=== PATIENT | female | born 1940 | race Caucasian/White ===

== ENCOUNTER 2019-11-26 12:56 | Emergency (ER) | payer MEDICARE, OTHER ==
--- NOTE | 2019-11-26 14:34 | ED Physician Documentation ---
PD HPI Fall - Stated complaint Stated Complaint: FALL DOWN STAIRS - NECK PX - Chief complaint Chief Complaint: Trauma Hd/Nk - History obtained from History obtained from: Patient - History of Present Illness Mechanism of injury: Tripped Fall distance: Standing position Where injury occurred: Home Timing - onset: Today Injury(ies) location: Neck Quality of pain: Pain Associated symptoms: Neck pain. No: LOC, Amnesia, Seizures, Ear drainage, Nasal drainage, Weakness, Paresthesias, Dyspnea, Nausea / vomiting, Hematemesis, Abdominal distension Symptoms improve with: Rest Worsens with: Movement, Palpation Contributing factors: No: Anticoagulated Similar symptoms before: Has not had sx before Recently seen: Not recently seen - Additional information Additional information: Previously well 79-year-old female was walking up her steps she walked up onto the landing she walked up 2 more steps and fell backwards back onto the landing. She has pain in her neck and radiating down to the right shoulder and right arm. She does not have a loss of consciousness she does not have any numbness or tingling she does not have any weakness. She has pain in her neck. She has not been ill recently. Review of Systems Constitutional: denies: Fever Eyes: denies: Decreased vision Ears: denies: Ear pain Nose: denies: Rhinorrhea / runny nose, Congestion Throat: denies: Sore throat Cardiac: denies: Chest pain / pressure Respiratory: denies: Dyspnea, Cough GI: denies: Abdominal Pain, Nausea, Vomiting : denies: Dysuria, Frequency Skin: denies: Rash Musculoskeletal: reports: Neck pain. 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 : None HEENT: None Psych: Depression Musculoskeletal: Osteoarthritis Derm: Psoriasis - Past Surgical History Past Surgical History: Yes General: Cholecystectomy, Appendectomy - Present Medications Home Medications: Ambulatory Orders Medication Instructions Recorded Confirmed Gabapentin [Neurontin] 300 mg PO HS 08/21/14 08/21/14 Levothyroxine [Synthroid] 125 mcg PO QDAC 08/21/14 08/21/14 Naproxen Sodium [Aleve] 220 mg PO DAILY 05/10/15 05/10/15 Trazodone HCl 150 mg PO DAILY 08/21/14 08/21/14 Cyclobenzaprine [Flexeril] 10 mg PO TID PRN #20 tablet 11/26/19 HYDROcod/ACETAM 5/325 [[place] 5/325] 1 - 2 each PO Q6HR PRN #14 tablet 11/26/19 - Allergies Allergies/Adverse Reactions: Allergies Allergy/AdvReac Type Severity Reaction Status Date / Time Penicillins Allergy Hives Verified 11/26/19 13:12 - Social History Does the pt smoke?: No Smoking Status: Never smoker Does the pt drink ETOH?: Yes Does the pt have substance abuse?: No - Immunizations Immunizations are current?: Yes - POLST Patient has POLST: No PD ED PE NORMAL - Vitals Vital signs reviewed: Yes (hypertensive ) - General General: Alert and oriented X 3, No acute distress, Well developed/nourished - HEENT HEENT: Atraumatic, PERRL, EOMI - Neck Neck: Supple, no meningeal sign, Other (There is bony point tenderness to the mid cervical spine and to the paraspinous muscles of the cervical spine more on the right than the leift. ) - Cardiac Cardiac: RRR, No murmur - Respiratory Respiratory: No respiratory distress, Clear bilaterally, Other (No chest wall or upper back tenderness) - Abdomen Abdomen: Normal bowel sounds, Soft, Non tender, Non distended, No organomegaly - Back Back: No CVA TTP, No spinal TTP - Derm Derm: Normal color, Warm and dry, No rash - Extremities Extremities: No deformity, No edema, No calf tenderness / cord - Neuro Neuro: Alert and oriented X 3, fountain server 2-12 intact, No motor deficit, No sensory deficit, Normal speech Eye Opening: Spontaneous Motor: Obeys Commands Verbal: Oriented GCS Score: 15 - Psych Psych: Normal mood, Normal affect Results - Vitals Vitals: Vital Signs - 24 hr 11/26/19 11/26/19 11/26/19 13:08 15:00 16:54 Temperature 36.4 C L Heart Rate 58 L 65 60 Respiratory 17 16 16 Rate Blood Pressure 161/61 H 146/85 H 155/89 H O2 Saturation 98 99 98 11/26/19 17:06 Temperature 36.7 C Heart Rate 62 Respiratory 16 Rate Blood Pressure 150/85 H O2 Saturation 98 Oxygen O2 Source Room air - Rads (name of study) CT cervical spine w/o Radiology: Prelim report reviewed (Impression: No fractures are seen. Relatively prominent lower cervical spine degenerative changes are seen.), EMP read indepedently, See rad report PD MEDICAL DECISION MAKING - ED course Complexity details: reviewed old records, reviewed results, re-evaluated patient, considered differential, d/w patient ED course: 79-year-old female with a fall onto a stair landing has injured her neck without evidence of fracture. This occurred 3 days ago and there is pain radiating down the right arm. She is administered decadron and placed into a soft collar for comfort which helps. Departure - Departure Disposition: Home, Self Care Clinical Impression: Cervical strain, acute Qualifiers: Encounter type: initial encounter Qualified Code(s): S16.1XXA - Strain of muscle, fascia and tendon at neck level, initial encounter Condition: Stable Instructions: ED Sprain Strain Neck Follow-Up: Your, doctor [Other] Prescriptions: HYDROcod/ACETAM 5/325 [[place] 5/325] 1 - 2 each PO Q6HR PRN #14 tablet PRN Reason: neck pain Cyclobenzaprine [Flexeril] 10 mg PO TID PRN #20 tablet PRN Reason: Spasms Discharge Date/Time: 11/26/19 17:08
--- NOTE | 2019-11-26 16:18 | CT Report ---
PROCEDURE: CERVICAL SPINE WO INDICATIONS: polytrauma, spine injury suspected TECHNIQUE: Noncontrast 3 mm thick sections acquired from the skull base to the T4 level. Sagittal and coronal r eformats were then constructed. For radiation dose reduction, the following was used: automated exp osure control, adjustment of mA and/or kV according to patient size. COMPARISON: None available at the time of this dictation FINDINGS: Image quality: Excellent. Bones: No fractures or dislocations. Visualized superior ribs are intact. Cervical spine degenerative changes are seen, with moderate disc space narrowing at C5-C6 and moderat e to severe disc space narrowing at C6-C7. Endplate irregularity and sclerosis are seen at these leve ls, with posterior directed endplate osteophytes at these levels. There is mild to moderate disc spac e narrowing seen at C4-C5. Mild grade 1 anterolisthesis is seen at C4-C5. Focal degenerative change i s seen involving the C1-C2 interface anteriorly. There is fusion of the right C4-C5 facet joint, as o n series 7 image 55. Soft tissues: Prevertebral soft tissues are normal in thickness. No paravertebral hematomas. No ap ical pneumothoraces. Presumed age-appropriate scarring is seen at the lung apices, right worse than left. IMPRESSION: No acute fractures are seen. Relatively prominent lower cervical spine degenerative changes are seen. Reviewed by: Israel Edwards MD on 11/26/2019 3:17 PM JUAN DANIEL Approved by: sIrael Edwards MD on 11/26/2019 3:17 PM JUAN DANIEL Station ID: [id number]
[2019-11-26 17:08] VITALS: BP 150/85
== END 2019-11-26 17:08 | disposition home or self-care (01) ==
LOC: ED 12:56
DX: S16.1XXA Strain of muscle, fascia and tendon at neck level, initial encounter (principal); M25.511 Pain in right shoulder; W10.8XXA Fall (on) (from) other stairs and steps, initial encounter; Y93.01 Activity, walking, marching and hiking; Y92.008 Other place in unspecified non-institutional (private) residence as the place of occurrence of the external cause; M50.321 Other cervical disc degeneration at C4-C5 level
CPT/HCPCS: 72125; 99284

== ENCOUNTER 2020-06-21 14:13 | Observation (INO) | payer MEDICARE, OTHER ==
[2020-06-21 15:00] LABS: BASOPHILS % (AUTO) 0.5 %; EOSINOPHILS # (AUTO) 0.1 10^3/uL (0.0-0.7); EOSINOPHILS % (AUTO) 1.8 %; HCT - HEMATOCRIT 41.6 % (37.0-47.0); HGB - HEMOGLOBIN 13.9 g/dL (12.0-16.0); LYMPHOCYTES # (AUTO) 1.3 10^3/uL (1.5-3.5); LYMPHOCYTES % (AUTO) 22.6 %; MEAN CORPUSCULAR HEMOGLOBIN 30.5 pg (27.0-31.0); MEAN CORPUSCULAR HGB CONC 33.4 g/dL (32.0-36.0); MEAN CORPUSCULAR VOLUME 91.2 fL (81.0-99.0); MEAN PLATELET VOLUME 10.7 fL (7.9-10.8); MONOCYTES # (AUTO) 0.7 10^3/uL (0.0-1.0); NEUTROPHILS # (AUTO) 3.4 10^3/uL (1.5-6.6); NEUTROPHILS % (AUTO) 61.9 %; PLT - PLATELET COUNT 201 10^3/uL (130-450); RED BLOOD COUNT 4.56 10^6/uL (4.20-5.40); RED CELL DISTRIBUTION WIDTH 13.5 % (12.0-15.0); WHITE BLOOD COUNT 5.5 x10^3/uL (4.8-10.8)
--- NOTE | 2020-06-21 15:07 | ED Physician Documentation ---
History of Present Illness - Stated complaint Stated Complaint: SENT BY CLINIC - Chief complaint Chief Complaint: Neuro - Additonal information Additional information: 80-year-old female comes to the emergency department for evaluation of str okelike symptoms. At approximately 10 AM this morning she was sitting in a chair and began to fall to the left side. She reports that she was unable to walk. She called her granddaughters for help and they assisted her to a couch. She was able to speak fully without slurred speech. The granddaughter reports that when she asked her grandmother to look at her her eyes looked in the wrong direction. Patient denies any vision changes. No sudden headache. The symptoms lasted about 10 minutes before fully resolving. She called her primary care doctor who advised she come to the ER. Patient then went to an urgent care who again advised she come to the ER. Patient arrives to the emergency department now. No history of atrial fib or hypertension. She is not anticoagulated. no tobacco use She does have a history of a stroke when she was 38 years of age. The etiology of that stroke is not clear. 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 - Past Surgical History Past Surgical History: Yes General: Cholecystectomy, Appendectomy - Present Medications Home Medications: Ambulatory Orders Medication Instructions Recorded Confirmed Gabapentin [Neurontin] 300 mg PO HS 08/21/14 08/21/14 Levothyroxine [Synthroid] 125 mcg PO QDAC 08/21/14 08/21/14 Trazodone HCl 150 mg PO DAILY 08/21/14 08/21/14 Cholesterol Medicine 0 mg 06/21/20 - Allergies Allergies/Adverse Reactions: Allergies Allergy/AdvReac Type Severity Reaction Status Date / Time Penicillins Allergy Hives Verified 06/21/20 15:54 - Social History Does the pt smoke?: No Smoking Status: Never smoker Does the pt drink ETOH?: Yes Does the pt have substance abuse?: No - Immunizations Immunizations are current?: Yes - POLST Patient has POLST: No PD ED PE EXPANDED - General General: Alert, No acute distress, Well developed/nourished - Neck Neck: Supple w/out meningeal sx. No: Adenopathy - Cardiac Cardiac: Regular Rate, Regular Rhythm, Radial strong equal, Pedal strong equal, Cap refill < 2 sec - Respiratory Respiratory: Clear to ausultation [place]. No: Distress, Labored - Abdomen Abdomen: Normal Bowel sounds. No: Tender to palpation - Neuro Neuro: Alert and Oriented X 3, CNII-XII intact, PERRL, Cerebellar nl, Normal finger nose, Normal speech. No: Nystagmus - GCS Eye Opening: Spontaneous Motor: Obeys Commands Verbal: Oriented Total: 15 Results - Vitals Vitals: Vital Signs - 24 hr 06/21/20 14:40 Temperature 36.7 C Heart Rate 58 L Respiratory 14 Rate Blood Pressure 147/81 H O2 Saturation 98 Oxygen O2 Source Room air - EKG (time done) 1443 Rate: Rate (enter#) (58) Rhythm: NSR [place]: Normal Intervals: Normal MD, Prolonged QT (450) Ischemia: Non specific changes (t wave flattening inferior) Compare to prior EKG: Old EKG unavailable Computer interpretation: Agree with computer - Labs Labs: Laboratory Tests 06/21/20 06/21/20 06/21/20 14:48 14:48 14:48 WBC 5.5 RBC 4.56 Hgb 13.9 Hct 41.6 MCV 91.2 MCH 30.5 MCHC 33.4 RDW 13.5 Plt Count 201 MPV 10.7 Neut # (Auto) 3.4 Lymph # (Auto) 1.3 L [place] # (Auto) 0.7 Eos # (Auto) 0.1 Baso # (Auto) 0.0 Absolute Nucleated RBC 0.00 Nucleated RBC % 0.0 Whole Blood INR 1.1 Sodium 135 Potassium 4.0 Chloride 101 Carbon Dioxide 23 Anion Gap 11.0 BUN 16 Creatinine 0.8 Estimated GFR (MDRD) 69 L Glucose 97 Calcium 8.8 Total Bilirubin 0.5 AST 21 ALT 13 Alkaline Phosphatase 70 Total Protein 7.6 Albumin 4.1 Globulin 3.5 Albumin/Globulin Ratio 1.2 Lipase 27 TSH 06/21/20 14:48 WBC RBC Hgb Hct MCV MCH MCHC RDW Plt Count MPV Neut # (Auto) Lymph # (Auto) Garden # (Auto) Eos # (Auto) Baso # (Auto) Absolute Nucleated RBC Nucleated RBC % Whole Blood INR Sodium Potassium Chloride Carbon Dioxide Anion Gap BUN Creatinine Estimated GFR (MDRD) Glucose Calcium Total Bilirubin AST ALT Alkaline Phosphatase Total Protein Albumin Globulin Albumin/Globulin Ratio Lipase TSH 1.10 - Rads (name of study) angio neck Radiology: Final report received (No areas of hemodynamically significant stenosis, vascular occlusion or aneurysmal dilation within the neck vasculature), Discussed with rads angio head CT Radiology: Final report received cxr Radiology: Final report received (Mild coarsened bibasilar opacities which could represent dependent edema versus developing airspace disease such as pneumonia.) PD MEDICAL DECISION MAKING - ED course Complexity details: reviewed results, re-evaluated patient, considered differential, d/w patient ED course: 80-year-old female presents to the emergency department for strokelike symptoms. At approximately 10 this a.m. she developed sudden weakness on the left side of her body and could not control it. Her granddaughters got her up and walked her to a couch. The weakness on the left side lasted about 10 minutes. The patient does have a history of previous CVA when she was 38 years of age. No history of hypertension non-smoker. No history of atrial fibrillation. EKG here is sinus rhythm. Screening labs show no acute abnormalities. CT angio of the head and neck showed no significant stenosis aneurysms or lesions. However given the history of previous stroke and short duration strokelike symptoms this a.m. patient will be brought into the hospital on observation status for further evaluation and work-up. I have spoken with Dr. Aguilar who agrees to bring the patient in for further treatment Departure - Departure Disposition: ED Place in Observation Clinical Impression: Stroke-like symptoms
[2020-06-21 15:19] LABS: ALBUMIN 4.1 g/dL (3.2-5.5); ALBUMIN/GLOBULIN RATIO 1.2 (1.0-2.2); BILIRUBIN,TOTAL 0.5 mg/dL (0.2-1.0); CALCIUM 8.8 mg/dL (8.5-10.3); CREATININE 0.8 mg/dL (0.4-1.0); TOTAL PROTEIN 7.6 g/dL (6.7-8.2)
--- NOTE | 2020-06-21 15:29 | XRAY Report ---
PROCEDURE: Chest 1 View X-Ray INDICATIONS: Chest Pain TECHNIQUE: One view of the chest was acquired. COMPARISON: Chest x-ray 08/21/2014 FINDINGS: Surgical changes and devices: None. Lungs and pleura: No pleural effusions or pneumothorax. Mild appearance of coarsened bibasilar opaci ties. Mediastinum: Mediastinal contours appear normal. Heart size is enlarged. Bones and chest wall: No suspicious bony lesions. Overlying soft tissues appear unremarkable. IMPRESSION: Mild coarsened bibasilar opacities which could represent dependent edema versus developing airspace d isease such as pneumonia. Reviewed by: Oksana Maguire MD on 06/21/2020 3:27 PM PST Approved by: Oksana Maguire MD on 06/21/2020 3:27 PM PST Station ID: [id number]
[2020-06-21] MEDS ORDERED: IOVERSOL 320 100 ML VIAL IVP ONE ×2 (15:51→16:02)
--- NOTE | 2020-06-21 15:52 | CT Report ---
PROCEDURE: ANGIO HEAD W/WO INDICATIONS: L sided facial droop CONTRAST: IV CONTRAST: Optiray 320 ml: 80 PO CONTRAST: *NO PO CONTRAST TECHNIQUE: Precontrast 4.5 mm thick angled axial sections acquired from the foramen magnum to the vertex. Afte r the administration of intravenous contrast, 1 mm thick sections acquired through the [place] of [place] is. Postcontrast 4.5 mm thick sections then re-acquired from the foramen magnum to the vertex. 3-di mensional evgsvry-hfgdwkrur-nsrprrazsx (MIP) and/or volume rendering reformats were acquired of the c entral intracranial vasculature. For radiation dose reduction, the following was used: automated ex posure control, adjustment of mA and/or kV according to patient size. COMPARISON: CT head 08/21/2014, CTA neck 06/21/2020 FINDINGS: Image quality: Excellent. Anterior circulation: Intracranial internal carotid arteries are normal in size and flow. The flow within the paired anterior cerebral arteries is normal and symmetric. The flow within the middle cer ebral arteries is normal and symmetric. The anterior communicating artery is seen. No aneurysms are seen. Posterior circulation: Visualized portions of the vertebral arteries demonstrate normal caliber, and join to form a normal appearing basilar artery. Flow within the posterior cerebral arteries is norm al and symmetric. No aneurysms are seen. There is a left vertebral artery dominance with the right vertebral artery ending in height. There is persistence of a right-sided circulation, consisten t with congenital variation. The ventricular system and cortical sulci demonstrate atrophy, consistent for patient's stated age. There are areas of hypodensity in the periventricular and subcortical white matter. There is no acut e intra or extra-axial fluid collection. No acute hemorrhage, mass lesion or midline shift. Old left basal ganglia infarction. Brainstem is unremarkable. Globes are symmetrical. Sinuses are aerated. O sseous structures are intact. IMPRESSION: 1. No acute intracranial process. 2. Moderate atrophy and chronic microvascular ischemic changes. 3. No areas of hemodynamically significant stenosis, vascular occlusion or aneurysmal dilation within the anterior or posterior circulation. Reviewed by: Oksana Maguire MD on 06/21/2020 3:50 PM PST Approved by: Oksana Maguire MD on 06/21/2020 3:50 PM PST Station ID: [id number]
--- NOTE | 2020-06-21 15:54 | CT Report ---
PROCEDURE: ANGIO NECK W INDICATIONS: L sided facial droop, L neck pain CONTRAST: IV CONTRAST: Optiray 320 ml: 80 PO CONTRAST: *NO PO CONTRAST TECHNIQUE: After the administration of intravenous contrast, 1.5 mm axial sections acquired from the aortic arch to the [place] of [place]. Coronal 3-D maximum intensity projection (MIP) and/or volume rendering ref ormats were then performed. For radiation dose reduction, the following was used: automated exposur e control, adjustment of mA and/or kV according to patient size. COMPARISON: CTA head 06/21/2020, CT brain 08/21/2014 FINDINGS: Image quality: Excellent. The origins of the left and right common, internal and external carotid arteries demonstrate no areas of hemodynamically significant stenosis, vascular occlusion or aneurysmal dilation. Origin of the le ft vertebral artery and right vertebral artery demonstrate no areas of hemodynamically significant st enosis, vascular occlusion or aneurysmal dilation. 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 In addition, the origin of the left vertebral artery is the aortic arch, also consistent w ith congenital variation. Limited, visualized portions of the subclavian vasculature are unremarkable . IMPRESSION: 1. There are no areas of hemodynamically significant stenosis, vascular occlusion or aneurysmal dilat ion within the neck vasculature. The estimate of stenosis included in the report of the imaging study was calculated using the NASCET method Reviewed by: Oksana Maguire MD on 06/21/2020 3:53 PM PST Approved by: Oksana Maguire MD on 06/21/2020 3:53 PM PST Station ID: [id number]
[2020-06-21] MEDS ORDERED: ACETAMINOPHEN 325 MG TABLET PO PRN (16:15)
[2020-06-21] MEDS ORDERED: SODIUM CHLORIDE FLUSH 0.9% 10 ML SYRINGE IVP PRN (16:15)
[2020-06-21] MEDS ORDERED: ASPIRIN 325 MG TABLET PO STA (16:20)
--- NOTE | 2020-06-21 16:25 | HISTORY & PHYSICAL EXAMINATION ---
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 This happened around 10 AM while she was drinking coffee. She suddenly felt like her left side was weak and she was falling to the left side. She called to her granddaughters who physically supported her and helped her walk to the couch. The whole episode lasted about 10 minutes. She called her primary care physician and was advised to go to the ED however she initially presented to urgent care from where she was directed to the ED. Work-up in the ED so far has included a CT scan of the brain without contrast which was negative. She currently has no neurologic deficits. She denied slurred speech or headaches. She reported changes in her vision at the time of the episode. She had difficulty focusing. Currently she denies any problems with her vision. She denied chest pain, dyspnea, abdominal pain, fever or chills. She was nauseous but did not vomit. As a result of her presentation she is being admitted for TIA versus CVA rule out. History - Past Medical History Cardiovascular: reports: None, High cholesterol Neuro: reports: CVA Endocrine/Autoimmune: reports: HyPOthyroidism GI: reports: None OPTOMETRY DOCTOR: reports: None : reports: None HEENT: reports: None Psych: reports: Depression Musculoskeletal: reports: Osteoarthritis Derm: reports: Psoriasis Other Past Medical History: Pt states had a CVA at age 35. - Past Surgical History General: reports: Cholecystectomy, Appendectomy - Family & Social History Family History Comment/Other: Her son has diabetes mellitus and CHF. Social History Notes: She smoked about 1 pack/day for 35 years but quit smoking 29 years ago. She drinks a couple of glasses of wine every night. She denies any recreational substance use. - POLST Patient has POLST: No POLST Status: Full Code Meds/Allgy - Home Medications Home Medications: Ambulatory Orders Medication Instructions Recorded Confirmed Gabapentin [Neurontin] 300 mg PO HS 08/21/14 08/21/14 Levothyroxine [Synthroid] 125 mcg PO QDAC 08/21/14 08/21/14 Trazodone HCl 150 mg PO DAILY 08/21/14 08/21/14 Cholesterol Medicine 0 mg 06/21/20 - Allergies Allergies/Adverse Reactions: Allergies Allergy/AdvReac Type Severity Reaction Status Date / Time Penicillins Allergy Hives Verified 06/21/20 15:54 Review of Systems - Constitutional Constitutional: denies: Fatigue, Fever, Chills - Eyes Eyes: denies: Pain, Vision loss, Dipolpia - Ears, Nose & Throat Ears, Nose & Throat: denies: Ear pain, Sore throat, Hoarseness - Cardiovascular Cariovascular: denies: Irregular heart rate, Edema, Lightheadedness, Syncope - Respiratory Respiratory: denies: Cough, Sputum production, Wheezing, SOB at rest, SOB with exertion - Gastrointestinal Gastrointestinal: denies: Abdominal pain, Abdominal distention, Constipation, Diarrhea, Change in bowel habits, Nausea, Vomiting - Genitourinary Genitourinary: denies: Dysuria, Frequency, Urgency, Hematuria, Incontinence, Flank pain - Musculoskeletal Musculoskeletal: denies: Muscle pain, Back pain, Muscle aches, Stiffness - Integumentary Integumentary: denies: Rash, Pruritis, Lesions - Neurological Neurological: reports: Focal weakness (left sided). denies: Headache, Dizziness, Numbness - Psychiatric Psychiatric: denies: Depression, Anxiety, Suicidal - Endocrine Endocrine: denies: Polyuria, Polydypsia - Hematologic/Lymphatic Hematologic/Lymphatic: denies: Anemia, Bruising, Petechiae Prior Level of Functionality: Patient is independent of activities of daily living. She walks without any walking aid. The granddaughter lives with her. Exam - Vital Signs Vital Signs: Vital Signs x48h Temp Pulse Resp BP Pulse Ox 06/21/20 14:40 36.7 C 58 L 14 147/81 H 98 - Physical Exam General Appearance: positive: No acute distress, Alert Eyes Bilateral: positive: PERRL, EOMI ENT: positive: No signs of dehydration Neck: positive: No JVD, Trachea midline Respiratory: positive: Chest non-tender, No respiratory distress, Breath sounds nml. negative: Wheezes, Rales, Rhonchi Cardiovascular: positive: Regular rate & rhythm, No murmur Abdomen: positive: Non-tender, No organomegaly, Nml bowel sounds, No distention. negative: Guarding, Rebound Rectal: positive: Non-tender Back: positive: Nml inspection Skin: positive: Color nml, No rash, Warm, Dry Extremities: positive: Non-tender, Full ROM, Nml appearance, No pedal edema Neurologic/Psychiatric: positive: Oriented x3, CN's nml (2-12), Motor nml, Mood/affect nml. negative: Weakness, Facial droop, Slurred/abnml speech Conclusion/Plan - Problem List (1) TIA (transient ischemic attack) Conclusion/Plan: CT head, CT angio head and neck were negative for any acute intracranial process. MRI of the brain ordered for the morning. 2D echocardiogram ordered. We will check lipid panel, hemoglobin A1c. Patient given a full dose of aspirin. Atorvastatin 40 mg nightly ordered. Neurochecks every shift. (2) Hyperlipidemia Conclusion/Plan: Lipid panel pending. Atorvastatin 40 mg every afternoon ordered (3) Hypothyroidism Conclusion/Plan: Resume Synthroid 125 mcg p.o. q.dAC - Lab Results Fish Bones: 06/21/20 14:48 06/21/20 14:48 Core Measures - Anticipated LOS I expect patient to be DC'd or transferred within 96 hours.: Yes - DVT/VTE - Prophylaxis VTE/DVT Device ordered at admit?: Yes VTE/DVT Prophylaxis med ordered at admit?: No
[2020-06-21] MEDS: SODIUM CHLORIDE FLUSH 0.9% 10 ML SYRINGE IVP SCH ×2 (18:48→23:35)
[2020-06-21] MEDS ORDERED: GABAPENTIN 300 MG CAPSULE PO SCH (21:00)
[2020-06-21] MEDS ORDERED: ATORVASTATIN 40 MG TABLET PO SCH (21:00)
[2020-06-21] MEDS ORDERED: traZODone 50 MG TABLET PO SCH (21:00)
[2020-06-21] MEDS: SODIUM CHLORIDE 0.9% 1,000 ML IV SCH (23:12)
[2020-06-22 05:04] LABS: BASOPHILS # (AUTO) 0.1 10^3/uL (0.0-0.1); BASOPHILS % (AUTO) 1.2 %; EOSINOPHILS # (AUTO) 0.3 10^3/uL (0.0-0.7); EOSINOPHILS % (AUTO) 7.2 %; HCT - HEMATOCRIT 40.1 % (37.0-47.0); HGB - HEMOGLOBIN 12.9 g/dL (12.0-16.0); LYMPHOCYTES # (AUTO) 1.5 10^3/uL (1.5-3.5); LYMPHOCYTES % (AUTO) 35.2 %; MEAN CORPUSCULAR HEMOGLOBIN 29.6 pg (27.0-31.0); MEAN CORPUSCULAR HGB CONC 32.2 g/dL (32.0-36.0); MEAN PLATELET VOLUME 10.7 fL (7.9-10.8); MONOCYTES # (AUTO) 0.7 10^3/uL (0.0-1.0); MONOCYTES % (AUTO) 15.6 %; NEUTROPHILS # (AUTO) 1.7 10^3/uL (1.5-6.6); NEUTROPHILS % (AUTO) 40.6 %; PLT - PLATELET COUNT 188 10^3/uL (130-450); RED BLOOD COUNT 4.36 10^6/uL (4.20-5.40); RED CELL DISTRIBUTION WIDTH 13.5 % (12.0-15.0); WHITE BLOOD COUNT 4.3 x10^3/uL (4.8-10.8)
[2020-06-22 05:26] LABS: BUN - BLOOD UREA NITROGEN 15 mg/dL (6-20); CALCIUM 8.5 mg/dL (8.5-10.3); CARBON DIOXIDE - CO2 23 mmol/L (21-32); CHLORIDE 106 mmol/L (101-111); CHOL/HDL RATIO 2.7 (<4.4); CHOLESTEROL 148 mg/dL; CREATININE 0.7 mg/dL (0.4-1.0); GFR - MDRD 81 (>89); GLUCOSE 90 mg/dL (70-100); HDL CHOLESTEROL 54 mg/dL; LDL CHOLESTEROL,CALCULATED 81 mg/dL; LDL/HDL RATIO 1.5 (<4.4); POTASSIUM 3.7 mmol/L (3.5-5.0); SODIUM 138 mmol/L (135-145); TRIGLYCERIDES 63 mg/dL; VLDL CHOLESTEROL 13 mg/dL
[2020-06-22] MEDS: SODIUM CHLORIDE 0.9% 1,000 ML IV SCH ×2 (05:36→13:33)
[2020-06-22] MEDS ORDERED: PANTOPRAZOLE 40 MG TABLET PO SCH (07:00)
[2020-06-22] MEDS ORDERED: LEVOTHYROXINE 125 MCG TABLET PO SCH (07:00)
[2020-06-22] MEDS: SODIUM CHLORIDE FLUSH 0.9% 10 ML SYRINGE IVP SCH (08:30)
[2020-06-22] MEDS ORDERED: ASPIRIN EC 81 MG TABLET PO SCH (09:00)
--- NOTE | 2020-06-22 11:05 | PHARMACY PROGRESS NOTE ---
- Best Possible Medication History Admit Date and Time: 06/21/20 1615 Processed by: Pharmacy Medication History completed: Yes Patient Interview: Completed Secondary Source(s): Physician records, Pharmacy records, Insurance records (PATIENT INTERVIEWED BY DESIGN SALES CONSULTANT. PATIENT ABLE TO CONFIRM HOME MEDICATIONS ) As the person ultimately responsible for medication therapy, providers are able to order a medication from an existing home medication list in [facility] via the "Reconcile Routine" prior to Confirmation of that medication by sales support engineer. Such practice is discouraged except when the physician, in their clinical judgment, deems that a medical need exists for a medication without regard to previous use.
--- NOTE | 2020-06-22 11:35 | MRI Report ---
PROCEDURE: Brain W/O INDICATIONS: TIA TECHNIQUE: Noncontrast axial T1 spin echo, axial T2 fast spin echo, sagittal and axial FLAIR, coronal T2 fast sp in echo, axial gradient echo, axial diffusion and ADC through the brain. COMPARISON: CT head, CTA head and neck 06/21/2020, CT head 08/21/2014 bulge infarction within the left basal ganglia extending into the subinsular region. FINDINGS: Image quality: Excellent. The ventricular system and cortical sulci demonstrate atrophy, consistent for patient's stated age. There are areas of hyperintense T2/FLAIR signal in the periventricular and subcortical white matter. There is no acute intra or extra-axial fluid collection. No acute hemorrhage, mass lesion or midlin e shift. Brainstem is unremarkable. There are no areas of restricted diffusion. Globes are symmetr ical. Sinuses are aerated. Osseous structures are intact. IMPRESSION: 1. No acute intracranial process. No acute ischemia. 2. Moderate atrophy and chronic microvascular ischemic changes. Reviewed by: Oksana Maguire MD on 06/22/2020 11:34 AM PST Approved by: Oksana Maguire MD on 06/22/2020 11:34 AM PST Station ID: [id number]
[2020-06-22 12:39] LABS: ESTIMATED AVERAGE GLUCOSE 105 mg/dL (70-100); HEMOGLOBIN A1c% 5.3 % (4.27-6.07)
--- NOTE | 2020-06-22 13:54 | DISCHARGE SUMMARY ---
Discharge Summary Admit Date: 06/21/20 Discharge Date: 06/22/20 Discharging Provider: Stefani Aguilar Condition at Discharge: Stable Discharge Disposition: 01 Home, Self Care - DIAGNOSES Admission Diagnoses: TIA Hyperlipidemia Hypothyroidism Discharge Diagnoses with Status of Each Condition: TIA: Acute. Resolved Hyperlipidemia: Chronic. 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 This happened around 10 AM while she was drinking coffee. She suddenly felt like her left side was weak and she was falling to the left side. She called to her granddaughters who physically supported her and helped her walk to the couch. The whole episode lasted about 10 minutes. She called her primary care physician and was advised to go to the ED however she initially presented to urgent care from where she was directed to the ED. Work-up in the ED so far has included a CT scan of the brain without contrast which was negative. She currently has no neurologic deficits. She denied slurred speech or headaches. She reported changes in her vision at the time of the episode. She had difficulty focusing. Currently she denies any problems with her vision. She denied chest pain, dyspnea, abdominal pain, fever or chills. She was nauseous but did not vomit. As a result of her presentation she is being admitted for TIA versus CVA rule out. The patient's hospital stay was unremarkable. There were no new events throughout her stay. Patient was placed on the baby aspirin daily. Her atorvastatin was increased from 10 to 40 mg nightly. She is to follow-up with her primary care physician as needed. CT angio of the head and neck was negative for any acute intracranial process. There was moderate atrophy and chronic microvascular ischemic changes noted. No areas of hemodynamically significant stenosis, vascular occlusion or aneurysmal dilatation within the anterior or posterior circulation. MRI of brain without contrast showed no acute intracranial process. No acute ischemia. Moderate atrophy and chronic microvascular ischemic changes. 2D echocardiogram showed left ventricular size is normal. Left ventricle wall thickness is towards the upper limit of normal to mildly increased. Overall left ventricular systolic function is normal with an ejection fraction of 60 to 65%. Diastolic function is indeterminate. No regional wall motion abnormalities is seen. Right ventricle size was normal. Function was also normal. There is no evidence of aortic stenosis. There is no evidence of aortic regurgitation. RVSP is 20. There is no pericardial effusion. There is no mass or thrombus identified. There is no pleural effusion. - ALLERGIES Allergies/Adverse Reactions: Allergies Allergy/AdvReac Type Severity Reaction Status Date / Time Penicillins Allergy Hives Verified 06/21/20 15:54 - MEDICATIONS Home Medications: Ambulatory Orders Medication Instructions Recorded Confirmed Gabapentin [Neurontin] 300 mg PO HS 08/21/14 06/22/20 Atorvastatin [Lipitor] 10 mg PO DAILY 06/21/20 06/22/20 Escitalopram [Lexapro] 10 mg PO DAILY 06/21/20 06/22/20 Levothyroxine [Synthroid] 112 mcg PO DAILY 06/21/20 06/22/20 Aspirin EC [Ecotrin] 81 mg PO DAILY 30 Days #30 tablet 06/22/20 Atorvastatin [Lipitor] 40 mg PO QPM 30 Days #30 tablet 06/22/20 - PHYSICAL EXAM AT DISCHARGE General Appearance: positive: No acute distress, Alert Eyes Bilateral: positive: PERRL, EOMI ENT: positive: No signs of dehydration Neck: positive: No JVD, Trachea midline Respiratory: positive: Chest non-tender, No respiratory distress, Breath sounds nml. negative: Wheezes, Rales, Rhonchi Cardiovascular: positive: Regular rate & rhythm, No murmur Abdomen: positive: Non-tender, No organomegaly, Nml bowel sounds, No distention. negative: Guarding, Rebound Back: positive: Nml inspection Skin: positive: Color nml, No rash, Warm, Dry Extremities: positive: Non-tender, Full ROM, Nml appearance, No pedal edema Neurologic/Psychiatric: positive: Oriented x3, CN's nml (2-12), Motor nml, Sens ation nml, Mood/affect nml - LABS Result Diagrams: 06/22/20 04:25 06/22/20 04:25 - TIME SPENT Time Spent in Discharge (Minutes): 25
--- NOTE | 2020-06-22 13:57 | Discharge Plan ---
Discharge Plan Problem Reviewed?: Yes Disposition: 01 Home, Self Care Condition: Stable Prescriptions: Aspirin EC [Ecotrin] 81 mg PO DAILY 30 Days #30 tablet Atorvastatin [Lipitor] 40 mg PO QPM 30 Days #30 tablet Diet: Cardiac Activity Restrictions: Activity as Tolerated Shower Restrictions: No Driving Restrictions: No Health Concerns: Admitted for left-sided weakness which Lasted around 10 minutes while you were at home. The symptoms had resolved by the time he came to the hospital. Consequently you underwent TIA versus CVA work-up. You had an MRI of the brain, 2D echocardiogram, lipid panel and glucose levels checked. The imagings that were done were negative for any new stroke. Your symptoms have not recurred throughout the time you have been monitored in the hospital. Consequently you are being discharged home. We will advised you to take a baby aspirin daily. Continue taking your atorvastatin at 40mg qhs. Follow-up with your primary care physician as needed. The above was explained to you and you are in agreement. Plan of Treatment: Admitted for left-sided weakness which Lasted around 10 minutes while you were at home. The symptoms had resolved by the time he came to the hospital. Consequently you underwent TIA versus CVA work-up. You had an MRI of the brain, 2D echocardiogram, lipid panel and glucose levels checked. The imagings that were done were negative for any new stroke. Your symptoms have not recurred throughout the time you have been monitored in the hospital. Consequently you are being discharged home. We will advised you to take a baby aspirin daily. Continue taking your atorvastatin 40mg qhs. Follow-up with your primary care physician as needed. The above was explained to you and you are in agreement. Care Goals: Admitted for left-sided weakness which Lasted around 10 minutes while you were at home. The symptoms had resolved by the time he came to the hospital. Consequently you underwent TIA versus CVA work-up. You had an MRI of the brain, 2D echocardiogram, lipid panel and glucose levels checked. The imagings that were done were negative for any new stroke. Your symptoms have not recurred throughout the time you have been monitored in the hospital. Consequently you are being discharged home. We will advised you to take a baby aspirin daily. Continue taking your atorvastatin 40mg qhs. Follow-up with your primary care physician as needed. The above was explained to you and you are in agreement. Assessment: Admitted for left-sided weakness which Lasted around 10 minutes while you were at home. The symptoms had resolved by the time he came to the hospital. Consequently you underwent TIA versus CVA work-up. You had an MRI of the brain, 2D echocardiogram, lipid panel and glucose levels checked. The imagings that were done were negative for any new stroke. Your symptoms have not recurred throughout the time you have been monitored in the hospital. Consequently you are being discharged home. We will advised you to take a baby aspirin daily. Continue taking your atorvastatin 40mg qhs. Follow-up with your primary care physician as needed. The above was explained to you and you are in agreement. No Smoking: If you smoke, Please STOP! Call for help.
[2020-06-22 15:43] VITALS: BP 123/67
== END 2020-06-22 15:50 | disposition home or self-care (01) ==
LOC: ED 14:13 → MS2 16:15
PROVIDERS: ADMIT Internal Medicine; ATTEND Internal Medicine
DX: G45.9 Transient cerebral ischemic attack, unspecified (principal); E78.5 Hyperlipidemia, unspecified; E03.9 Hypothyroidism, unspecified; I69.941 Monoplegia of lower limb following unspecified cerebrovascular disease affecting right dominant side; F32.9 Major depressive disorder, single episode, unspecified; M19.90 Unspecified osteoarthritis, unspecified site; Z79.899 Other long term (current) drug therapy; Z87.891 Personal history of nicotine dependence
CPT/HCPCS: 36415; 70496; 70498; 70551; 71045; 80048; 80053; 80061; 83036; 83690; 84443; 85025; 85610; 93005; 93306; 99284; 99285; A9270; G0378; Q9967; 83721

== ENCOUNTER 2020-11-16 15:49 | Outpatient (CLI) | payer MEDICARE, OTHER | END 2020-11-16 15:50 | disposition home or self-care (01) | LOC: COV 15:49 | PROVIDERS: ATTEND Family Medicine | DX: R05 Cough (principal); R07.0 Pain in throat; Z20.822 Contact with and (suspected) exposure to COVID-19 ==

== ENCOUNTER 2021-09-06 08:00 | Outpatient (CLI) | payer MEDICARE, OTHER ==
--- NOTE | 2021-09-06 16:19 | XRAY Report ---
PROCEDURE: Ribs w/PA Chest RT INDICATIONS: FALL/CHEST PAIN TECHNIQUE: 3 views of the right ribs were acquired, along with a single view chest. COMPARISON: No visualized acute fracture or dislocation. However, occult injury cannot be excluded. Recommend short interval imaging follow-up in 7-10 days as clinically indicated for additional evalua tion. FINDINGS: Surgical changes and devices: None. Bones and chest wall: No fractures or dislocations. No suspicious bony lesions. Overlying soft tis sues appear unremarkable. Lungs and pleura: No pleural effusions or pneumothorax. Lungs appear clear. Mediastinum: Mediastinal contours appear normal. Heart size is normal. IMPRESSION: No visualized acute fracture or dislocation. However, occult injury cannot be excluded. Recommend ailin rt interval imaging follow-up in 7-10 days as clinically indicated for additional evaluation. Reviewed by: Oksana Maguire MD on 09/06/2021 4:18 PM PDT Approved by: Oksana Maguire MD on 09/06/2021 4:18 PM PDT Station ID: [id number]
== END 2021-09-06 23:59 | disposition home or self-care (01) ==
LOC: DI.S 08:00
PROVIDERS: ATTEND Emergency Medicine
DX: S20.211A Contusion of right front wall of thorax, initial encounter (principal)

== ENCOUNTER 2021-11-02 11:33 | Emergency (ER) | payer MEDICARE, OTHER ==
--- NOTE | 2021-11-02 12:55 | XRAY Report ---
PROCEDURE: Shoulder 3 View RT INDICATIONS: trauma TECHNIQUE: 3 views of the shoulder were acquired. COMPARISON: None. FINDINGS: Bones: No fractures or dislocations. Moderate acromioclavicular joint and glenohumeral joint osteoa rthritic changes are seen with joint space narrowing, subchondral sclerosis and small marginal osteop hyte formation. No suspicious bony lesions. Visualized ribs appear intact. Soft tissues: Amorphous calcifications the adjacent to greater tuberosity of humeral head is seen sug gestive of hydroxyapatite deposition disease. IMPRESSION: 1. No acute shoulder fracture or dislocation. Moderate shoulder joint osteoarthritis. Suggestion of c alcific tendinitis involving distal rotator cuff tendon. Reviewed by: Abhishek Grullon MD on 11/02/2021 12:53 PM PDT Approved by: Abhishek Grullon MD on 11/02/2021 12:53 PM PDT Station ID: [id number]
--- OUTSIDE RECORDS SUMMARY | 2021-11-02 13:27 | EXTERNAL MEDICAL SUMMARY RPT | Continuity of Care Document ---
:1940 Author Organization [facility] Address [address] [place] [address] Phone Allergies No information. Encounters No information. Functional Status No information. Immunizations No information. Medications date description facility +0000 albuterol sulfate [facility] [place] [phone] atorvastatin [facility] [place] [phone] atorvastatin [facility] [place] [phone] albuterol sulfate [facility] [place] Problems No information. Procedures No information. Results/Labs No information. Social History No information. Vital Signs date measurement value units +0000 BMI BMI 29.69 kg/m2 [id number]+0000 BP_diastolic BP_diastolic 74 mm[H g] [id number]+0000 BP_systolic BP_systolic 150 mm[Hg] 44053310425683+0000 heart_rate heart_rate 56 /min [id number]+0000 height_metric height_metric 153.67 cm [id number]+0000 height_standard height_standard 60.5 in [id number]+0000 respiration_rate respiration_rate 15 /min [id number]+0000 temperature_metric temperature_metric 36.39 C [id number]+0000 temperature_standard temperature_standard 9 7.5 F [id number]+0000 weight_metric weight_metric 69.85 kg [id number]+0000 weight_standard weight_standard 154 lb
--- NOTE | 2021-11-02 13:58 | ED Physician Documentation ---
PD HPI UPPER EXT INJURY - Stated complaint Stated Complaint: RT ARM PX - Chief complaint Chief Complaint: Trauma Ext - History obtained from History obtained from: Patient - Additonal information Additional information: This is an 81-year-old woman who had a fall few months ago. But this shoulder really started hurting over the last 5 days or so. She cannot lift it up and it radiates down the arm. No recent injury. This has never been a problem before. She been taking Tylenol with modest relief. 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: None : None HEENT: None Psych: Depression Musculoskeletal: Osteoarthritis Derm: Psoriasis - Past Surgical History Past Surgical History: Yes General: Cholecystectomy, Appendectomy - Present Medications Home Medications: Ambulatory Orders Medication Instructions Recorded Confirmed Gabapentin [Neurontin] 300 mg PO HS 08/21/14 06/22/20 Atorvastatin [Lipitor] 10 mg PO DAILY 06/21/20 06/22/20 Escitalopram [Lexapro] 10 mg PO DAILY 06/21/20 06/22/20 Levothyroxine [Synthroid] 112 mcg PO DAILY 06/21/20 06/22/20 Aspirin EC [Ecotrin] 81 mg PO DAILY 30 Days #30 tablet 06/22/20 Atorvastatin [Lipitor] 40 mg PO QPM 30 Days #30 tablet 06/22/20 Naproxen [EC-Naproxen] 500 mg PO BID #6 tab 11/02/21 - Allergies Allergies/Adverse Reactions: Allergies Allergy/AdvReac Type Severity Reaction Status Date / Time Penicillins Allergy Hives Verified 11/02/21 12:02 - Social History Does the pt smoke?: No Smoking Status: Never smoker Does the pt drink ETOH?: Yes Does the pt have substance abuse?: No - Immunizations Immunizations are current?: Yes - POLST Patient has POLST: No POLST Status: Full Code PD ED PE NORMAL - Vitals Vital signs reviewed: Yes - General General: Alert and oriented X 3, No acute distress - Neck Neck: Supple, no meningeal sign, No bony TTP - Extremities Extremities: Other (Diffusely tender over the shoulder but without warmth or redness. She cannot lift the shoulder Actively more than a few degrees but passively we can get her up to 90 degrees but she cannot hold it there actively. No tenderness or limited range of motion at the wrist, she has mildly limited range o) Results - Vitals Vitals: Vital Signs - 24 hr 11/02/21 12:00 Temperature 36.4 C L Heart Rate 68 Respiratory 16 Rate Blood Pressure 161/95 H O2 Saturation 98 Oxygen O2 Source Room air PD MEDICAL DECISION MAKING - ED course ED course: 81-year-old woman with right shoulder pain, x-ray showing tendinitis and osteoarthritis. She cannot abduct Actively more than a few degrees but passively we can get her up to 90 degrees but she cannot hold it there actively. No tenderness or limited range of motion at the wrist, she has mildly limited range of motion at the elbow but not tender there. Plan to start her on physical therapy with orthopedic follow-up and a very short course of NSAIDs. Departure - Departure Disposition: Home, Self Care Clinical Impression: Rotator cuff tendinitis Qualifiers: Laterality: right Qualified Code(s): M75.81 - Other shoulder lesions, right shoulder Condition: Good Record reviewed to determine appropriate education?: Yes Instructions: ED Tendinitis Calcific Follow-Up: Orthopedic Care [Provider Group] Prescriptions: Naproxen [EC-Naproxen] 500 mg PO BID #6 tab Comments: As discussed, both based on exam and x-ray it seems that you probably have rotator cuff tendinitis of the right arm. I like you to do the exercises as shown to maintain range of motion and to prevent a "frozen joint" I am giving you a handwritten order for physical therapy to evaluate and treat right rotator cuff tendinitis 3 times a week for 6 weeks. I will also like you to follow-up with orthopedics, calling Friday for an appointment. We are putting you on an anti-inflammatory for 3 days and only 3 days and you can take Tylenol in addition to that and after that.
[2021-11-02 14:37] VITALS: BP 152/75
== END 2021-11-02 14:38 | disposition home or self-care (01) ==
LOC: ED 11:33
DX: M75.81 Other shoulder lesions, right shoulder (principal)
CPT/HCPCS: 99283

== ENCOUNTER 2023-10-27 16:12 | Outpatient (CLI) | payer MEDICARE, OTHER | END 2023-10-27 23:59 | disposition critical access hospital (66) | LOC: EMS 16:12 | DX: R53.1 Weakness (principal); M54.6 Pain in thoracic spine | CPT/HCPCS: A0425; A0429 ==

== ENCOUNTER 2023-10-27 16:42 | Inpatient (IN) | payer MEDICARE, OTHER ==
--- NOTE | 2023-10-27 17:26 | ED Physician Documentation ---
History of Present Illness - Stated complaint Stated Complaint: GENERAL WEAKNESS/BACK PX - Chief complaint Chief Complaint: General - Additonal information Additional information: 83-year-old female with history of hypercholesterolemia, pneumonia, hypothyroidism, CVA, depression, osteoarthritis, psoriasis, cholecystectomy, appendectomy presents emergency department today for generalized weakness and back pain brought in via EMS. Pt states she started having severe back back pain bilaterally around 1400 today, never experienced anything like this before. She was sitting down at rest in the back seat and her hands started shaking. Pt st ates she was also experiencing arm, abdominal, and chest pain. Difficult to follow all the details of the story but states she saw her PCP in August and told her about RLQ pain and her Dr didnt seem to be too worried about it. No dysuria, but foul smelling urine. She also endorses in chills today. 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 : None HEENT: None Psych: Depression Musculoskeletal: Osteoarthritis Derm: Psoriasis - Past Surgical History Past Surgical History: Yes General: Cholecystectomy, Appendectomy - Present Medications Home Medications: Ambulatory Orders Medication Instructions Recorded Confirmed Gabapentin [Neurontin] 300 mg PO HS 08/21/14 06/22/20 Atorvastatin [Lipitor] 10 mg PO DAILY 06/21/20 06/22/20 Escitalopram [Lexapro] 10 mg PO DAILY 06/21/20 06/22/20 Levothyroxine [Synthroid] 112 mcg PO DAILY 06/21/20 06/22/20 Aspirin EC [Ecotrin] 81 mg PO DAILY 30 Days #30 tablet 06/22/20 Atorvastatin [Lipitor] 40 mg PO QPM 30 Days #30 tablet 06/22/20 Naproxen [EC-Naproxen] 500 mg PO BID #6 tab 11/02/21 - Allergies Allergies/Adverse Reactions: Allergies Allergy/AdvReac Type Severity Reaction Status Date / Time Penicillins Allergy Hives Verified 10/27/23 17:11 - Social History Does the pt smoke?: No Smoking Status: Never smoker Does the pt drink ETOH?: Yes Does the pt have substance abuse?: No - Immunizations Immunizations are current?: Yes - POLST Patient has POLST: No POLST Status: Full Code PD ED PE NORMAL - Vitals Vital signs reviewed: Yes - General General: Alert and oriented X 3, No acute distress, Well developed/nourished - HEENT HEENT: Atraumatic - Cardiac Cardiac: RRR, No murmur, No gallop - Respiratory Respiratory: No respiratory distress, Clear bilaterally - Abdomen Abdomen: Other (generalized abdominal tenderness) - Back Back: Other (bilateral CVA tenderness) Results - Vitals Vitals: Vital Signs - 24 hr 10/27/23 10/27/23 10/27/23 17:11 20:34 22:00 Temperature 37.2 C Heart Rate 62 79 75 Respiratory 16 20 20 Rate Blood Pressure 120/61 132/72 H 145/83 H O2 Saturation 95 93 96 10/27/23 22:16 Temperature Heart Rate 80 Respiratory 18 Rate Blood Pressure 140/73 H O2 Saturation 96 Oxygen O2 Source Room air - EKG (time done) 1843 EKG releavant findings:: EKG personally interpreted by author of this note. Relevant findings are: Rate: Rate (enter#) (82) Rhythm: Sinus tachycardia [place]: Normal Intervals: Normal [place] QRS: Normal Ischemia: Normal ST segments Computer interpretation: Agree with computer - Labs Labs: Laboratory Tests 10/27/23 10/27/23 10/27/23 17:55 17:55 17:55 WBC 9.3 RBC 3.95 L Hgb 12.5 Hct 38.4 MCV 97.2 MCH 31.6 H MCHC 32.6 RDW 13.1 Plt Count 157 MPV 10.1 Neut # (Auto) 8.8 H Lymph # (Auto) 0.2 L [place] # (Auto) 0.2 Eos # (Auto) 0.0 Baso # (Auto) 0.0 Absolute Nucleated RBC 0.00 Nucleated RBC % 0.0 Sodium 139 Potassium 3.4 L Chloride 106 Carbon Dioxide 24 Anion Gap 9.0 BUN 16 Creatinine 0.7 Estimated GFR (MDRD) 80 L Glucose 114 H Lactic Acid 1.1 Calcium 8.9 Total Bilirubin 0.8 AST 14 ALT 9 L Alkaline Phosphatase 62 Troponin I High Sens 257.8 H* Total Protein 6.8 Albumin 3.9 Globulin 2.9 Albumin/Globulin Ratio 1.3 Lipase < 10 L Urine Color Urine Clarity Urine pH Ur Specific [place] Urine Protein Urine Glucose (UA) Urine Ketones Urine Occult Blood Urine Nitrite Urine Bilirubin Urine Urobilinogen Ur Leukocyte Esterase Urine RBC Urine WBC Ur Squamous Epith Cells Urine Bacteria Ur Microscopic Review Urine Culture Comments 10/27/23 10/27/23 18:57 19:43 WBC RBC Hgb Hct MCV MCH MCHC RDW Plt Count MPV Neut # (Auto) Lymph # (Auto) [place] # (Auto) Eos # (Auto) Baso # (Auto) Absolute Nucleated RBC Nucleated RBC % Sodium Potassium Chloride Carbon Dioxide Anion Gap BUN Creatinine Estimated GFR (MDRD) Glucose Lactic Acid Calcium Total Bilirubin AST ALT Alkaline Phosphatase Troponin I High Sens 265.6 H* Total Protein Albumin Globulin Albumin/Globulin Ratio Lipase Urine Color YELLOW Urine Clarity CLOUDY Urine pH 6.0 Ur Specific [place] 1.020 Urine Protein 30 H Urine Glucose (UA) NEGATIVE Urine Ketones TRACE Urine Occult Blood TRACE-INTA Urine Nitrite POSITIVE H Urine Bilirubin NEGATIVE Urine Urobilinogen 1 (NORMAL) Ur Leukocyte Esterase LARGE H Urine RBC 0-5 Urine WBC >25 H Ur Squamous Epith Cells FEW Squamous Urine Bacteria Many H Ur Microscopic Review INDICATED Urine Culture Comments INDICATED - Rads (name of study) Chest x-ray Relevant Findings:: Final report received, EMP independent interpretation of test, Other (Suspected mild pulmonary edema with peribronchial cuffing and interstitial opacities) PD Medical Decision Making - ED course ED course: 83-year-old female presents emergency department for multiple broad complaints. Patient says that she is concerned that she might have a urinary tract infection because she has been having some foul-smelling urine with voids. Urinalysis was complete and did reveal that she does have a significant urinary tract infection and a large amount of leukocytes with nitrites urine sent for cultures for further evaluation. Patient also had bilateral CVA tenderness, started IV Rocephin for bilateral pyelonephritis. 2 sets of blood cultures were sent to the lab prior to initiating IV antibiotics. Because patient said that she did have episode of midepigastric/chest pain troponins were complete and initial troponin was found to be 257, delta troponin came back quite elevated at 265. No white count no anemia normal kidney function. Chest x-ray reveals mild pulmonary edema with peribronchial cuffing and interstitial opacities, CT KUB was complete for further evaluation of possible kidney stone and does not reveal hydronephrosis or obstructive kidney stone CT abdomen pelvis not show any other acute abnormalities or findings. Because patient was explaining the pain radiating to her back with reporting pain a CT angio was completed to rule out dissection and did not reveal any pulmonary embolism or dissection she does have a large hiatal hernia. 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 Plaza, [facility] and he has a very low suspicion that this is related to acute coronary syndrome especially given the fact that she has no EKG changes suspicious for ACS. He does not recommend starting patient on anticoagulation at this point in time no heparin drip or weight-based dosing of Lovenox. He believes that the elevated troponins are likely secondary to bilateral pyelonephritis. Report given to Dr. Almonte, LEONARD OCONNELL who will further take over manage the patient and attempt to admit patient here for IV antibiotics for bilateral pyelonephritis elevated troponins are most likely due to bilateral pyelonephritis. Departure - Departure Disposition: 02 Transfer Acute Care Hosp Forms: PCP List
--- NOTE | 2023-10-27 18:00 | XRAY Report ---
PROCEDURE: Chest 1V INDICATIONS: Chest Pain TECHNIQUE: One view of the chest was acquired. COMPARISON: None. FINDINGS: Surgical changes and devices: None. Lungs and pleura: No pleural effusions or pneumothorax. Peribronchial cuffing and interstitial opaci ties. Mediastinum: Mediastinal contours appear normal. Heart size is normal. Bones and chest wall: No suspicious bony lesions. Overlying soft tissues appear unremarkable. Ski n fold overlying the left chest wall. IMPRESSION: Suspected mild pulmonary edema with peribronchial cuffing and interstitial opacities. Reviewed by: Rj Ruiz MD on 10/27/2023 4:59 PM AKDT Approved by: Rj Ruiz MD on 10/27/2023 4:59 PM AKDT Station ID: [id number]
[2023-10-27 18:10] LABS: BASOPHILS % (AUTO) 0.3 %; HCT - HEMATOCRIT 38.4 % (37.0-47.0); HGB - HEMOGLOBIN 12.5 g/dL (12.0-16.0); LYMPHOCYTES # (AUTO) 0.2 10^3/uL (1.5-3.5); LYMPHOCYTES % (AUTO) 2.4 %; MEAN CORPUSCULAR HEMOGLOBIN 31.6 pg (27.0-31.0); MEAN CORPUSCULAR HGB CONC 32.6 g/dL (32.0-36.0); MEAN CORPUSCULAR VOLUME 97.2 fL (81.0-99.0); MEAN PLATELET VOLUME 10.1 fL (7.9-10.8); MONOCYTES # (AUTO) 0.2 10^3/uL (0.0-1.0); MONOCYTES % (AUTO) 2.4 %; NEUTROPHILS # (AUTO) 8.8 10^3/uL (1.5-6.6); NEUTROPHILS % (AUTO) 94.3 %; PLT - PLATELET COUNT 157 10^3/uL (130-450); RED BLOOD COUNT 3.95 10^6/uL (4.20-5.40); RED CELL DISTRIBUTION WIDTH 13.1 % (12.0-15.0); WHITE BLOOD COUNT 9.3 x10^3/uL (4.8-10.8)
[2023-10-27 18:25] LABS: ALBUMIN 3.9 g/dL (3.2-5.5); ALBUMIN/GLOBULIN RATIO 1.3 (1.0-2.2); ALKALINE PHOSPHATASE 62 IU/L (42-121); ALT ALANINE AMINOTRANSFERASE 9 IU/L (10-60); AST ASPARTATE AMINOTRANSFERASE 14 IU/L (10-42); BILIRUBIN,TOTAL 0.8 mg/dL (0.2-1.0); BUN - BLOOD UREA NITROGEN 16 mg/dL (6-20); CALCIUM 8.9 mg/dL (8.5-10.3); CARBON DIOXIDE - CO2 24 mmol/L (21-32); CHLORIDE 106 mmol/L (101-111); CREATININE 0.7 mg/dL (0.6-1.3); GFR - MDRD 80 (>89); GLUCOSE 114 mg/dL (74-104); POTASSIUM 3.4 mmol/L (3.5-4.5); SODIUM 139 mmol/L (135-145); TOTAL PROTEIN 6.8 g/dL (6.4-8.9)
[2023-10-27 18:26] LABS: LIPASE < 10 U/L (11-82)
[2023-10-27 18:35] LABS: TROPONIN I HIGH SENSITIVITY 257.8 ng/L (2.3-14.8)
--- NOTE | 2023-10-27 19:00 | CT Report ---
PROCEDURE: KUB INDICATIONS: Bilateral flank pain TECHNIQUE: A CT scan of the abdomen and pelvis was performed without the use of intravenous contrast. Images we re recorded and evaluated at appropriate window settings. Reformats: coronal and sagittal. For radiat ion dose reduction, the following was used: automated exposure control, adjustment of mA and/or kV ac cording to patient size. COMPARISON: None. FINDINGS: Image quality: Diagnostic. Lower chest: Bibasilar atelectasis. Moderate-large hiatal hernia. Liver: No contour-deforming mass. Gallbladder: Surgically absent Biliary tree: No intrahepatic or extrahepatic dilation, accounting for age. Spleen: No splenomegaly. Pancreas: No pancreatic ductal dilation. Adrenals: No adrenal nodule. Kidneys and ureters: No hydronephrosis. No contour-deforming mass. Partially exophytic left renal cys t. Bilateral ureters are normal in course and caliber. No renal or ureteral stones. Stomach, bowel and peritoneum: No gastric or small bowel dilation. No abnormal wall thickening. No pa thologic free fluid. Lymph nodes: No central or retroperitoneal adenopathy. Vessels: No infrarenal aortic aneurysm. Reproductive organs: Unremarkable. Bladder: Bladder wall thickness is normal, accounting for underdistention. No calcified bladder stone s. Pelvic lymph nodes: No adenopathy by size criteria. Bones: No aggressive osseous abnormality. Moderate multilevel spondylosis of the imaged spine. Levosc oliosis of the lumbar spine centered at L1-2. Other: No significant ventral or inguinal hernia. IMPRESSION: No hydronephrosis or obstructing renal stone. CT abdomen and pelvis without acute abnormalities. Status post cholecystectomy. Other chronic findings as above Reviewed by: Antony Cavazos MD on 10/27/2023 6:59 PM PDT Approved by: Antony Cavazos MD on 10/27/2023 6:59 PM PDT Station ID: [id number]
[2023-10-27] MEDS: ASPIRIN 325 MG TABLET PO STA (19:01)
[2023-10-27 19:02] LABS: BILIRUBIN,URINE NEGATIVE (NEGATIVE); GLUCOSE, URINE (UA) NEGATIVE (NEGATIVE); KETONES,URINE (UA) TRACE mg/dL (NEGATIVE); LEUKOCYTE ESTERASE, URINE LARGE (NEGATIVE); NITRITE,URINE POSITIVE (NEGATIVE); OCCULT BLOOD,URINE TRACE-INTA (NEGATIVE); PROTEIN,URINE 30 mg/dL (NEGATIVE); UROBILINOGEN,URINE 1 (NORMAL) E.U./dL (NORMAL)
[2023-10-27] MEDS ORDERED: iohexoL-300 100 ML VIAL ONE (19:06)
[2023-10-27 19:18] LABS: CLARITY,URINE CLOUDY (CLEAR)
[2023-10-27 19:25] LABS: BACTERIA,URINE Many /HPF (None Seen); RBC,URINE 0-5 /HPF (0-5); SQUAMOUS EPITHELIAL CELL,UR FEW Squamous (<= Few); WBC,URINE >25 /HPF (0-5)
[2023-10-27] MEDS ORDERED: cefTRIAXone 1 GM VIAL ONE (19:45)
[2023-10-27] MEDS: cefTRIAXone 1 GM in SODIUM CHLORIDE 0.9% MINIBAG 100 ML IV STA (19:46)
[2023-10-27] MEDS: iohexoL-300 100 ML VIAL IVP ONE (19:58)
--- NOTE | 2023-10-27 20:20 | CT Report ---
PROCEDURE: Angio Chest INDICATIONS: Evaluate for dissection CONTRAST: 80ml [id number] TECHNIQUE: After the administration of intravenous contrast, 2 mm axial images were acquired from the pulmonary apices to the posterior costophrenic angles during the arterial phase. In addition, 1 mm lung kernel and 5 mm soft tissue kernel reconstructions were performed. 3-dimensional coronal oblique maximum int ensity projection (MIP) reformats, 8 mm axial MIP, and 5 mm coronal and sagittal MPR reformats were t hen performed through the thorax. For radiation dose reduction, the following was used: automated exp osure control, adjustment of mA and/or kV according to patient size. COMPARISON: CT KUB 10/27/2023. FINDINGS: Image quality: Diagnostic. Large vessels: No filling defects within the opacified pulmonary arteries, accounting for motion and contrast timing. No evidence of acute aortic syndrome or aortic aneurysm. Lungs and pleura: No consolidation. No pleural effusions. No pneumothorax. No suspicious pulmonary n odules which require follow up. Mediastinum: Heart size is normal. No pericardial effusion. No large vessel abnormality. No mediastin al adenopathy by size criteria. Large hiatal hernia. Chest wall and lower neck: Thyroid is unremarkable. No axillary or supraclavicular adenopathy by size . Bones: No aggressive osseous abnormality. Upper Abdomen: Status post cholecystectomy. Please see separately dictated CT KUB obtained same day IMPRESSION: No pulmonary embolus. No acute cardiopulmonary process. Large hiatal hernia. Reviewed by: María Elena Mauro MD, PhD on 10/27/2023 8:19 PM PDT Approved by: María Elena Mauro MD, PhD on 10/27/2023 8:19 PM PDT Station ID: [id number]
[2023-10-27] MEDS ORDERED: NITROGLYCERIN SL 0.4 MG TABLET SL ONE (22:23)
[2023-10-27] MEDS: NITROGLYCERIN SL 0.4 MG TABLET SL STA (22:24)
[2023-10-27] MEDS: KETOROLAC 30 MG/ML VIAL IVP STA (23:13)
[2023-10-28 06:27] LABS: BASOPHILS # (AUTO) 0.1 10^3/uL (0.0-0.1); BASOPHILS % (AUTO) 0.6 %; EOSINOPHILS % (AUTO) 0.1 %; HCT - HEMATOCRIT 35.6 % (37.0-47.0); HGB - HEMOGLOBIN 11.8 g/dL (12.0-16.0); LYMPHOCYTES # (AUTO) 1.6 10^3/uL (1.5-3.5); LYMPHOCYTES % (AUTO) 11.3 %; MEAN CORPUSCULAR HEMOGLOBIN 32.3 pg (27.0-31.0); MEAN CORPUSCULAR HGB CONC 33.1 g/dL (32.0-36.0); MEAN CORPUSCULAR VOLUME 97.5 fL (81.0-99.0); MEAN PLATELET VOLUME 10.8 fL (7.9-10.8); MONOCYTES # (AUTO) 1.3 10^3/uL (0.0-1.0); MONOCYTES % (AUTO) 9.1 %; NEUTROPHILS % (AUTO) 78.4 %; PLT - PLATELET COUNT 153 10^3/uL (130-450); RED BLOOD COUNT 3.65 10^6/uL (4.20-5.40); RED CELL DISTRIBUTION WIDTH 13.2 % (12.0-15.0)
[2023-10-28 06:46] LABS: ALBUMIN 3.8 g/dL (3.2-5.5); ALBUMIN/GLOBULIN RATIO 1.4 (1.0-2.2); ALKALINE PHOSPHATASE 49 IU/L (42-121); ALT ALANINE AMINOTRANSFERASE 8 IU/L (10-60); AST ASPARTATE AMINOTRANSFERASE 14 IU/L (10-42); BILIRUBIN,TOTAL 0.7 mg/dL (0.2-1.0); BUN - BLOOD UREA NITROGEN 18 mg/dL (6-20); CALCIUM 8.6 mg/dL (8.5-10.3); CARBON DIOXIDE - CO2 25 mmol/L (21-32); CHLORIDE 106 mmol/L (101-111); CREATININE 0.8 mg/dL (0.6-1.3); GFR - MDRD 69 (>89); GLUCOSE 107 mg/dL (74-104); LIPASE < 10 U/L (11-82); POTASSIUM 3.8 mmol/L (3.5-4.5); SODIUM 138 mmol/L (135-145); TOTAL PROTEIN 6.5 g/dL (6.4-8.9)
[2023-10-28 06:51] LABS: TROPONIN I HIGH SENSITIVITY 121.2 ng/L (2.3-14.8)
--- NOTE | 2023-10-28 08:46 | ED Physician Documentation ---
ED Addendum - Addendum Addendum: 10/28/23 08:46 83-year-old female with UTI, likely causing pyelonephritis that was causing her back pain. Her food tray assembler was spoken to last night, does not feel that this is a true NSTEMI, likely more reflects demand ischemia, was recommended to treat the pyelonephritis. Her troponin has already significantly decreased at this morning. She is not having chest pain. We will continue IV antibiotics. We will admit the patient here for treatment of her pyelonephritis. Discussed the case with the hospitalist. This document was made in part using voice recognition software. While efforts are made to proofread this document, sound alike and grammatical errors may occur. 10/28/23 08:47 Blood cultures came back positive for E. coli bacteremia in 2 bottles. Departure - Departure Disposition: 66 [facility] DC/Xfer Clinical Impression: Pyelonephritis, Bacteremia UTI (urinary tract infection) Qualifiers: Urinary tract infection type: acute pyelonephritis Qualified Code(s): N10 - Acute pyelonephritis Condition: Stable Forms: PCP List
[2023-10-28] MEDS: SODIUM CHLORIDE 0.9% 1,000 ML IV STA (09:18)
[2023-10-28] MEDS ORDERED: ONDANSETRON ODT 4 MG TABLET TL PRN (11:19)
[2023-10-28] MEDS ORDERED: HYDROmorphone 0.5 MG/0.5 ML SYRINGE IVP PRN (11:19)
[2023-10-28] MEDS ORDERED: HYDROcod/ACETAM 5/325 MG TABLET PO PRN (11:19)
[2023-10-28] MEDS ORDERED: SODIUM CHLORIDE FLUSH 0.9% 10 ML SYRINGE IVP PRN (11:19)
[2023-10-28] MEDS ORDERED: ONDANSETRON 4 MG/2 ML VIAL IVP PRN (11:19)
[2023-10-28] MEDS: SODIUM CHLORIDE 0.9% 1,000 ML IV SCH (13:30)
[2023-10-28] MEDS: cefTRIAXone 2 GM in SODIUM CHLORIDE 0.9% MINIBAG 100 ML IV SCH (13:30)
--- NOTE | 2023-10-28 14:32 | HISTORY & PHYSICAL EXAMINATION ---
Chief Complaint - Chief Complaint Chief Complaint: Back pain History of Present Illness - History of Present Illness HPI Comment/Other: Patient is an 83-year-old female the past medical history of hyperlipidemia, hypothyroidism, prior CVA, MDD who presented to the ED due to complaints of generalized weakness as well as bilateral low back pain. UA was obtained which revealed evidence of nitrites and leukocyte Estrace as well as bacteria. She was given preliminary diagnosis of pyelonephritis. CT abdomen/pelvis was performed which did not show any acute abnormalities this was followed by a CTA chest which was unremarkable. She was started on IV ceftriaxone. Blood cultures close while she was in the ED returned positive for E. coli on PCR. During my evaluation, patient was afebrile and denies any chills. She states that prior to arrival she was having rigors. She did have a mild elevation in troponin which was reviewed with cardiology per ED physician's notes who stated that this was not an NSTEMI and was likely due to her infection. Patient was admitted to the floor for further management of her sepsis due to bacteremia and pyelonephritis. She is a full code. 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 Social History Notes: She smoked about 1 pack/day for 35 years but quit smoking 29 years ago. She drinks a couple of glasses of wine every night. She denies any recreational substance use. - POLST Patient has POLST: No POLST Status: Full Code Meds/Allgy - Home Medications Home Medications: Ambulatory Orders Medication Instructions Recorded Confirmed Gabapentin [Neurontin] 300 mg PO HS 08/21/14 10/28/23 Atorvastatin [Lipitor] 10 mg PO DAILY 06/21/20 10/28/23 Escitalopram [Lexapro] 10 mg PO DAILY 06/21/20 10/28/23 Levothyroxine [Synthroid] 112 mcg PO DAILY 06/21/20 10/28/23 Atorvastatin [Lipitor] 40 mg PO QPM 30 Days #30 tablet 06/22/20 10/28/23 - Allergies Allergies/Adverse Reactions: Allergies Allergy/AdvReac Type Severity Reaction Status Date / Time Penicillins Allergy Hives Verified 10/27/23 17:11 Review of Systems - Constitutional Constitutional: denies: Fatigue, Fever, Chills - Genitourinary Genitourinary: reports: Flank pain - All Other Systems All Other Systems: reports: Reviewed and negative Exam - Vital Signs Reviewed Vital Signs: Yes Vital Signs: Vital Signs x48h Temp Pulse Pulse Resp BP BP Pulse Ox 10/28/23 13:08 36.3 C L 66 18 120/61 95 10/28/23 12:52 36.8 C 68 20 124/67 95 10/28/23 09:00 64 16 109/96 H 97 - Physical Exam General Appearance: positive: No acute distress, Alert Respiratory: positive: Chest non-tender, No respiratory distress, Breath sounds nml Cardiovascular: positive: Regular rate & rhythm, No murmur, No gallop Abdomen: positive: Non-tender, No organomegaly, Nml bowel sounds, No distention Neurologic/Psychiatric: positive: Oriented x3, Mood/affect nml Sepsis Event Note (H) - Evaluation Current Stage of Sepsis: Sepsis Possible source of Sepsis: positive: Genitourinary Conclusion/Plan - Problem List (1) Pyelonephritis Conclusion/Plan: --Suspected pyelonephritis. --Blood and urine culture pending. Blood culture preliminarily showing E. coli, final culture and sensitivities pending. --Continue on IV ceftriaxone 2 g daily for 10-14 days. (2) Bacteremia Conclusion/Plan: --As above. Continue IV ceftriaxone 2 g daily for 10-14 days. (3) UTI (urinary tract infection) Qualifiers: Urinary tract infection type: acute pyelonephritis Qualified Code(s): N10 - Acute pyelonephritis (4) Hyperlipidemia Conclusion/Plan: --Continue atorvastatin 40 mg daily. --Documented prior history of TIA. (5) Hypothyroidism Conclusion/Plan: --Continue levothyroxine. (6) MDD (major depressive disorder) Conclusion/Plan: --Continue Escitalopram. - Lab Results Fish Bones: 10/28/23 06:08 10/28/23 06:08 - Diagnostic Imaging Results Diagnostic Imaging Results: positive: Final report reviewed
--- NOTE | 2023-10-28 16:14 | PHARMACY PROGRESS NOTE ---
- Best Possible Medication History Admit Date and Time: 10/28/23 1119 Processed by: Pharmacy Medications reviewed in ED?: No Medication History completed: Yes Patient Interview: Completed Secondary Source(s): Pharmacy records (Medication Reconciliation completed by Tobacco EducatorDorcas), Insurance records As the person ultimately responsible for medication therapy, providers are able to order a medication from an existing home medication list in [facility] via the "Reconcile Routine" prior to Confirmation of that medication by customer support advisor. Such practice is discouraged except when the physician, in their clinical judgment, deems that a medical need exists for a medication without regard to previous use.
[2023-10-28] MEDS: SODIUM CHLORIDE FLUSH 0.9% 10 ML SYRINGE IVP SCH (16:55)
[2023-10-28] MEDS: ACETAMINOPHEN 325 MG TABLET PO PRN (17:00)
[2023-10-28] MEDS ORDERED: ATORVASTATIN 40 MG TABLET PO SCH (21:00)
[2023-10-28] MEDS: ATORVASTATIN 10 MG TABLET PO SCH (22:03)
[2023-10-28] MEDS: GABAPENTIN 300 MG CAPSULE PO SCH (22:03)
[2023-10-29 05:48] LABS: BASOPHILS # (AUTO) 0.1 10^3/uL (0.0-0.1); BASOPHILS % (AUTO) 0.7 %; EOSINOPHILS # (AUTO) 0.3 10^3/uL (0.0-0.7); EOSINOPHILS % (AUTO) 3.9 %; HCT - HEMATOCRIT 35.2 % (37.0-47.0); HGB - HEMOGLOBIN 11.1 g/dL (12.0-16.0); LYMPHOCYTES # (AUTO) 1.2 10^3/uL (1.5-3.5); LYMPHOCYTES % (AUTO) 14.1 %; MEAN CORPUSCULAR HEMOGLOBIN 31.3 pg (27.0-31.0); MEAN CORPUSCULAR HGB CONC 31.5 g/dL (32.0-36.0); MEAN CORPUSCULAR VOLUME 99.2 fL (81.0-99.0); MEAN PLATELET VOLUME 11.1 fL (7.9-10.8); MONOCYTES % (AUTO) 11.6 %; NEUTROPHILS # (AUTO) 6.1 10^3/uL (1.5-6.6); NEUTROPHILS % (AUTO) 69.5 %; PLT - PLATELET COUNT 145 10^3/uL (130-450); RED BLOOD COUNT 3.55 10^6/uL (4.20-5.40); RED CELL DISTRIBUTION WIDTH 13.4 % (12.0-15.0); WHITE BLOOD COUNT 8.8 x10^3/uL (4.8-10.8)
[2023-10-29 06:05] LABS: CALCIUM 8.3 mg/dL (8.5-10.3); CREATININE 0.7 mg/dL (0.6-1.3); POTASSIUM 3.7 mmol/L (3.5-4.5)
[2023-10-29 06:12] LABS: TROPONIN I HIGH SENSITIVITY 58.8 ng/L (2.3-14.8)
[2023-10-29] MEDS: LEVOTHYROXINE 112 MCG TABLET PO SCH (06:38)
[2023-10-29] MEDS: ENOXAPARIN 40 MG/0.4 ML SYRINGE SUBQ SCH (09:32)
[2023-10-29] MEDS: ESCITALOPRAM 10 MG TABLET PO SCH (09:32)
--- NOTE | 2023-10-29 14:00 | PROVIDER PROGRESS NOTE ---
Subjective - Prog Note Date Prog Note Date: 10/29/23 Prog Note Time: 13:55 - Subjective Pt reports feeling: Improved Subjective: The patient was admitted with acute pyelonephritis and bacteremia. Blood cultures are growing E. coli. When I saw the patient today she states she is feeling much better and she is hopeful that she can go home. We discussed that we need the sensitivities to come back prior to transitioning her to oral antibiotics and she understands. She denies fever or chills. No chest pain, shortness of breath or cough. No nausea vomiting or diarrhea. No urinary complaints. She states she is back to her normal self Current Medications - Current Medications Current Medications: Tylenol 650 mg every 4 hours as needed Hydrocodone 5/325 mg 1 p.o. every 4 hours as needed Atorvastatin 20 mg p.o. nightly Ceftriaxone 2 g daily Lovenox 40 mg subcu daily Escitalopram 20 mg daily Gabapentin 300 mg p.o. nightly Dilaudid 0.5 mg IV every 2 hours as needed severe pain Synthroid 112 mcg daily Ondansetron 4 mg TL or IV every 6 hours as needed nausea Objective - Vital Signs/Intake & Output Reviewed Vital Signs: Yes Vital Signs: Vital Signs x48h Temp Pulse Resp BP Pulse Ox 10/29/23 07:59 36.6 C 60 18 156/85 H 95 Intake & Output: Intake & Output 10/26/23 10/27/23 10/28/23 10/29/23 23:59 23:59 23:59 23:59 Intake Total 100 2610.000 1580 Output Total 900 1950 Balance 100 1710.000 -370 - Objective General Appearance: positive: No acute distress, Alert Eyes Bilateral: positive: Normal inspection ENT: positive: ENT inspection nml Neck: positive: Nml inspection Respiratory: positive: Chest non-tender, No respiratory distress, Breath sounds nml. negative: Wheezes, Rales, Rhonchi Cardiovascular: positive: Regular rate & rhythm, No murmur, No gallop. negative: Friction rub Abdomen: positive: Non-tender, No organomegaly, Nml bowel sounds. negative: Tenderness, Guarding, Rebound Skin: positive: Color nml, No rash, Warm, Dry Extremities: positive: Non-tender Neurologic/Psychiatric: positive: Oriented x3, CN's nml (2-12) - Lab Results Fish Bones: 10/29/23 05:23 10/29/23 05:23 Other Labs: Lab Results x24hrs 10/29/23 10/29/23 Range/Units 05:23 05:23 WBC 8.8 (4.8-10.8) x10^3/uL RBC 3.55 L (4.20-5.40) 10^6/uL Hgb 11.1 L (12.0-16.0) g/dL Hct 35.2 L (37.0-47.0) % MCV 99.2 H (81.0-99.0) fL MCH 31.3 H (27.0-31.0) pg MCHC 31.5 L (32.0-36.0) g/dL RDW 13.4 (12.0-15.0) % Plt Count 145 (130-450) 10^3/uL MPV 11.1 H (7.9-10.8) fL Neut # (Auto) 6.1 (1.5-6.6) 10^3/uL Lymph # (Auto) 1.2 L (1.5-3.5) 10^3/uL [place] # (Auto) 1.0 (0.0-1.0) 10^3/uL Eos # (Auto) 0.3 (0.0-0.7) 10^3/uL Baso # (Auto) 0.1 (0.0-0.1) 10^3/uL Absolute Nucleated RBC 0.00 x10^3/uL Nucleated RBC % 0.0 /100WBC Sodium 140 (135-145) mmol/L Potassium 3.7 (3.5-4.5) mmol/L Chloride 112 H (101-111) mmol/L Carbon Dioxide 23 (21-32) mmol/L Anion Gap 5.0 L (6-13) BUN 16 (6-20) mg/dL Creatinine 0.7 (0.6-1.3) mg/dL Estimated GFR (MDRD) 80 L (>89) Glucose 89 (74-104) mg/dL Calcium 8.3 L (8.5-10.3) mg/dL Troponin I High Sens 58.8 H* (2.3-14.8) ng/L ABX Reporting Has patient been on IV antibiotics over the past 48 hours?: Yes Sepsis Event Note (H) - Evaluation Current Stage of Sepsis: Sepsis Possible source of Sepsis: positive: Genitourinary Assessment/Plan - Problem List (1) E. coli UTI (urinary tract infection) Impression: Currently the patient is on 2 g of IV Rocephin daily. It was previously d ocumented that she may have pyelonephritis. There is no evidence of this on imaging and I believe this is ruled out (2) E coli bacteremia Impression: The patient has E. coli bacteremia. Will repeat blood cultures today to document clearing. Continue 2 g of IV ceftriaxone for now. Culture results are pending (3) Non-ischemic myocardial injury (non-traumatic) Impression: The admitting provider spoke to cardiology who felt that this was likely due to her acute illness. The patient did not have any chest pain and no ischemic changes noted on her EKG. This was likely a nonischemic myocardial injury due to her acute illness (7) Hypothyroidism Impression: Continue home dose of Synthroid (8) MDD (major depressive disorder) Impression: Continue escitalopram 20 mg daily (9) Hypokalemia Impression: Repleted and resolved Disposition: The patient is responding beautifully to treatment. She is feeling much improved. We are awaiting final sensitivity results so that we can then change her over to oral antibiotics. I am hopeful that we can get her out of the hospital possibly as early as tomorrow. Time spent: 35 minutes
[2023-10-30 00:10] VITALS: O2SAT 94
[2023-10-30 05:49] LABS: BASOPHILS # (AUTO) 0.1 10^3/uL (0.0-0.1); BASOPHILS % (AUTO) 0.9 %; EOSINOPHILS # (AUTO) 0.3 10^3/uL (0.0-0.7); EOSINOPHILS % (AUTO) 6.3 %; HCT - HEMATOCRIT 33.7 % (37.0-47.0); HGB - HEMOGLOBIN 10.7 g/dL (12.0-16.0); LYMPHOCYTES # (AUTO) 1.4 10^3/uL (1.5-3.5); LYMPHOCYTES % (AUTO) 26.4 %; MEAN CORPUSCULAR HEMOGLOBIN 31.4 pg (27.0-31.0); MEAN CORPUSCULAR HGB CONC 31.8 g/dL (32.0-36.0); MEAN CORPUSCULAR VOLUME 98.8 fL (81.0-99.0); MEAN PLATELET VOLUME 10.8 fL (7.9-10.8); MONOCYTES # (AUTO) 0.7 10^3/uL (0.0-1.0); MONOCYTES % (AUTO) 12.5 %; NEUTROPHILS # (AUTO) 2.9 10^3/uL (1.5-6.6); NEUTROPHILS % (AUTO) 53.7 %; PLT - PLATELET COUNT 164 10^3/uL (130-450); RED BLOOD COUNT 3.41 10^6/uL (4.20-5.40); RED CELL DISTRIBUTION WIDTH 13.3 % (12.0-15.0); WHITE BLOOD COUNT 5.4 x10^3/uL (4.8-10.8)
[2023-10-30 06:36] LABS: ALBUMIN 3.4 g/dL (3.2-5.5); CALCIUM 8.3 mg/dL (8.5-10.3); CREATININE 0.5 mg/dL (0.6-1.3); MAGNESIUM 1.7 mg/dL (1.7-2.3); POTASSIUM 3.6 mmol/L (3.5-4.5)
[2023-10-30 08:26] VITALS: BP 159/86
--- NOTE | 2023-10-30 08:39 | Discharge Plan ---
Discharge Plan Problem Reviewed?: Yes Disposition: Home, Self Care Condition: Good Prescriptions: Cefdinir 300 mg PO BID #14 cap Diet: Regular Activity Restrictions: Slowly increase activity. Shower Restrictions: No Driving Restrictions: No Weight Bearing: Full Weight Health Concerns: You were admitted with a UTI and blood stream infection. 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 E coli UTI The patient will complete a 1 week course of therapy with po Cefdinir. 2. E coli Bacteremia Repeat blood cultures are pending. Her organism is pansensitive. She will complate a course of po Cefdinir 3. Nonischemic myocardial injury The admitting provider spoke to cardiology who felt that this was likely due to her acute illness. The patient did not have any chest pain and no ischemic changes were noted on her EKG. Will defer to her outpatient provider as to whether she needs further workup. 4. Hypothyroidism Continue home dose of Synthroid 5. Moderate major depression Continue escitalopram 20 mg daily 6. Hypokalemia Repleted and resolved 7. Cerebrovascular disease with history of stroke No evidence of an acute CVA. Continue home regimen 8. Hyperlipidemia Continue atorvastatin 20 mg daily No Smoking: If you smoke, Please STOP! Call for help.
--- NOTE | 2023-10-30 08:48 | DISCHARGE SUMMARY ---
Discharge Summary Admit Date: 10/28/23 Discharge Date: 10/30/23 Discharging Provider: Chayo Pearce PA-C Code Status: Attempt Resuscitation Condition at Discharge: Good Discharge Disposition: 01 Home, Self Care - DIAGNOSES Admission Diagnoses: Patient is an 83-year-old female the past medical history of hyperlipidemia, hypothyroidism, prior CVA, MDD who presented to the ED due to complaints of generalized weakness as well as bilateral low back pain. UA was obtained which revealed evidence of nitrites and leukocyte Estrace as well as bacteria. She was given preliminary diagnosis of pyelonephritis. CT abdomen/pelvis was performed which did not show any acute abnormalities this was followed by a CTA chest which was unremarkable. She was started on IV ceftriaxone. Blood cultures close while she was in the ED returned positive for E. coli on PCR. During my evaluation, patient was afebrile and denies any chills. She states that prior to arrival she was having rigors. She did have a mild elevation in troponin which was reviewed with cardiology per ED physician's notes who stated that this was not an NSTEMI and was likely due to her infection. Patient was admitted to the floor for further management of her sepsis due to bacteremia and pyelonephritis. She is a full code. Discharge Diagnoses with Status of Each Condition: 1. E coli UTI The patient will complete a 1 week course of therapy with po Cefdinir. 2. E coli Bacteremia Repeat blood cultures are pending. Her organism is pansensitive. She will c omplate a course of po Cefdinir 3. Nonischemic myocardial injury The admitting provider spoke to cardiology who felt that this was likely due to her acute illness. The patient did not have any chest pain and no ischemic changes were noted on her EKG. Will defer to her outpatient provider as to whether she needs further workup. 4. Hypothyroidism Continue home dose of Synthroid 5. Moderate major depression Continue escitalopram 20 mg daily 6. Hypokalemia Repleted and resolved 7. Cerebrovascular disease with history of stroke No evidence of an acute CVA. Continue home regimen 8. Hyperlipidemia Continue atorvastatin 20 mg daily - HPI History of Present Illness: From the admission HP: - HOSPITAL COURSE Hospital Course: The patient was initially started on 1 g of IV Rocephin daily. Blood cultures quickly were positive for E. coli. She was then changed to 2 g of IV Rocephin daily. The patient is much improved. She has been afebrile for the past 48 hours. She is up ambulating in the room and desires to go home. We will transition her over to an oral regimen of antibiotic therapy with Cefdinir today. She will complete a 1 week course of therapy. At this point maximum hospital benefit has been reached. The patient will be discharged today in stable condition. - ALLERGIES Allergies/Adverse Reactions: Allergies Allergy/AdvReac Type Severity Reaction Status Date / Time Penicillins Allergy Hives Verified 10/27/23 17:11 - MEDICATIONS Home Medications: Ambulatory Orders Medication Instructions Recorded Confirmed Gabapentin [Neurontin] 600 mg PO HS 08/21/14 10/28/23 Escitalopram [Lexapro] 20 mg PO DAILY 06/21/20 10/28/23 Levothyroxine [Synthroid] 112 mcg PO DAILY 06/21/20 10/28/23 Atorvastatin [Lipitor] 20 mg PO DAILY 10/28/23 10/28/23 Naproxen 500 mg PO DAILY PRN 10/28/23 10/28/23 Solifenacin Succinate [Vesicare] 5 mg PO DAILY 10/28/23 10/28/23 Cefdinir 300 mg PO BID #14 cap 10/30/23 - PHYSICAL EXAM AT DISCHARGE General Appearance: positive: No acute distress Eyes Bilateral: positive: Normal inspection ENT: positive: ENT inspection nml Neck: positive: Nml inspection Respiratory: positive: Chest non-tender, No respiratory distress, Breath sounds nml Cardiovascular: positive: Regular rate & rhythm, No murmur, No gallop. negative: Friction rub Abdomen: positive: Non-tender, Nml bowel sounds, No distention, Tenderness Skin: positive: Color nml, No rash, Warm, Dry Extremities: positive: Non-tender, Full ROM Neurologic/Psychiatric: positive: Oriented x3, CN's nml (2-12) - LABS Result Diagrams: 10/30/23 05:24 10/30/23 05:24 - SEPSIS Current Stage of Sepsis: Sepsis Possible source of Sepsis: Genitourinary - FOLLOW UP Follow Up: The patient will follow-up with her primary care physician in 1 to 2 weeks - TIME SPENT Time Spent in Discharge (Minutes): 45
== END 2023-10-30 10:45 | disposition home or self-care (01) | DRG 872 ==
LOC: EDUNIT# → ED 16:42 → MS2 10-28 11:19
PROVIDERS: ADMIT Family Medicine; ATTEND Physician Assistant
DX: N10 Acute pyelonephritis (principal); B96.20 Unspecified Escherichia coli [E. coli] as the cause of diseases classified elsewhere; R00.0 Tachycardia, unspecified; R79.89 Other specified abnormal findings of blood chemistry; E78.00 Pure hypercholesterolemia, unspecified; A41.51 Sepsis due to Escherichia coli [E. coli]; F32.A Depression, unspecified; R07.9 Chest pain, unspecified; J81.1 Chronic pulmonary edema; R91.8 Other nonspecific abnormal finding of lung field; N39.0 Urinary tract infection, site not specified; I5A Non-ischemic myocardial injury (non-traumatic); E03.9 Hypothyroidism, unspecified; F32.9 Major depressive disorder, single episode, unspecified; Z86.73 Personal history of transient ischemic attack (TIA), and cerebral infarction without residual deficits; E78.5 Hyperlipidemia, unspecified; E87.6 Hypokalemia; I67.9 Cerebrovascular disease, unspecified
CPT/HCPCS: 36415; 71045; 71275; 74176; 80048; 80053; 80069; 81001; 83605; 83690; 83735; 84484; 85025; 87040; 87086; 87154; 87181; 93005; 96361; 96365; 96375; 99285; A9270; J1650; Q9967; 81003